=== PATIENT | female | born 2000 | race Hispanic/Latino ===

== ENCOUNTER 2023-01-01 04:50 | Emergency (ER) | payer OTHER, SELFPAY ==
[2023-01-01 04:54] VITALS: BP 133/54; PULSE 82; RESP 19; TEMP 36.2; O2SAT 100
--- NOTE | 2023-01-01 07:50 | ED.EYEPROB ---
HPI - Eye Problem General Chief complaint: Eye Problems Stated complaint: Right eye swelling Time Seen by Provider: 01/01/23 07:03 Source: patient and RN notes reviewed Mode of arrival: ambulatory Limitations: no limitations History of Present Illness HPI Narrative: This is a 22 year old female who presents for evaluation of right upper eyelid swelling. She noticed mild right upper eyelid swelling on sunday. She states she thought it was ingrown eyelash. She reports last night her upper eyelid seemed more swollen so she came to ER. She reports she has been here for a couple hours so her swelling has improved without treatment. She describes itching burning pain to eyelid. She denies light sensitivity, blurred vision, foreign body sensation to her eye. Related Data Allergies Allergy/AdvReac Type Severity Reaction Status Date / Time No Known Allergies Allergy Verified 01/01/23 06:11 Review of Systems Review of Systems: All systems reviewed & are unremarkable except as noted in HPI and below PMFSH Past Medical History Medical History (Updated 01/01/23 @ 08:00 by Venessa Horner MD) No significant medical problems Surgical History Surgical History (Updated 01/01/23 @ 08:00 by Venessa Horner MD) No pertinent past surgical history Social History Social History (Updated 01/01/23 @ 08:00 by Venessa Horner MD) Smoking status: Never smoker Exam Const: General: no acute distress and alert Nutritional Appearance: well nourished Orientation/consciousness: patient oriented x3 HENMT: Head: normal to inspection Mouth: Yes Normal oral and palatal mucosa present, Yes lip normal and Yes moist mucous membranes Eyes: Eyelids: eyelid abnormality right upper eyelid swelling, tenderness (mild tenderness) and other (right upper eyelid stye, no ); without erythema, no crusting or scaling of lid margins and with no ptosis Conjunctivae: conjunctivae normal Pupils: Equal, round and reactive pupils present EOM: EOMs intact bilaterally Direct Ophthalmoscopy: no photophobia Resp: Effort & Inspection: normal respiratory effort Skin: General skin exam: normal color Rashes: no rashes Wounds: no wounds Neuro: General: patient oriented x3, moves all extremities and CN's II-XI intact bilaterally Extrem: General: normal to inspection Psych: Mental Status: mental status grossly normal Affect: normal affect Attitude: cooperative Course Vital Signs Vital signs: Vital Signs Temperature 97.1 F L 01/01/23 04:54 Pulse Rate 82 01/01/23 04:54 Respiratory Rate 19 01/01/23 04:54 Blood Pressure 133/54 L 01/01/23 04:54 Pulse Oximetry 100 01/01/23 04:54 Oxygen Delivery Room Air 01/01/23 04:54 Temperature 97.1 F L 01/01/23 04:54 Pulse Rate 82 01/01/23 04:54 Respiratory Rate 19 01/01/23 04:54 Blood Pressure 133/54 L 01/01/23 04:54 Pulse Oximetry 100 01/01/23 04:54 Oxygen Delivery Room Air 01/01/23 04:54 Discharge Plan Discharge Clinical Impression: Hordeolum externum of right upper eyelid Patient Disposition: Home, Self-Care Condition: Stable Instructions: Antibiotic Form, Manolo (ED) Additional Instructions: Today you were found to have a stye. You will need to perform warm compresses with eyelid massage for 10-15 minutes intermittently through the day. Use antibiotic ointment as prescribed. Follow up with an eye doctor if it does not improve in 72 hours. Take medication such as ibuprofen or aleve for your pain. Prescriptions: New bacitracin-polymyxin B 500-10,000 unit/gram ointment 1 applic RIGHT EYE Q6H 10 Days Qty: 3.5 0RF Follow-up/Referrals: Alex Merrill MD [Physician] - PHYSICIAN,CYCLE REPAIRER [Primary Care Provider] - Stand Alone Forms: Work/School Release IP
== END 2023-01-01 08:00 | disposition home or self-care (01) ==
PROVIDERS: Emergency Provider General Practice
DX: H00.011 Hordeolum externum right upper eyelid (principal)
CPT/HCPCS: 99283

== ENCOUNTER 2023-10-12 23:33 | Emergency (ER) | payer SELFPAY ==
[2023-10-12 23:36] VITALS: BP 114/60; PULSE 78; RESP 20; TEMP 37.1; O2SAT 100
[2023-10-13 01:27] LABS: Basophils Absolute Auto 0.1 K/mm3 (0.0-0.1); Basophils Percent Auto 0.5 % (0.2-1.2); Eosinophils Absolute Auto 0.1 K/mm3 (0-0.3); Eosinophils Percent Auto 0.7 % (0-4.4); Hematocrit 45.2 % (37.0-47.0); Hemoglobin 14.8 g/dL (12.0-15.0); Immature Granulocyte Absolute 0.12 K/mm3 (0.00-0.031); Immature Granulocyte Percent A 0.7 % (0-0.5); Lymphocytes Absolute Auto 1.69 K/mm3 (0.9-3.2); Lymphocytes Percent Auto 9.2 % (18.3-44.2); Mean Corpuscular HGB Conc 32.7 g/dl (32-36); Mean Corpuscular Hemoglobin 27.3 pg (26-34); Mean Corpuscular Volume 83.2 fl (80-100); Mean Platelet Volume 10.5 fl (7.4-10.4); Monocytes Absolute Auto 0.9 K/mm3 (0.1-0.6); Monocytes Percent Auto 5.1 % (2.6-8.5); Neutrophils Absolute Auto 15.4 K/mm3 (1.3-6.7); Neutrophils Percent Auto 83.8 % (45.5-73.1); Platelet Count Result 343 k/mm3 (150-375); Red Blood Count 5.43 M/mm3 (4.2-5.4); Red Cell Distribution Width 12.4 % (11.5-14.5); White Blood Count 18.3 K/mm3 (4.5-10.0)
[2023-10-13 01:39] LABS: Alanine Aminotransferase 42 U/L (6-35); Albumin Level 5.4 g/dL (3.5-5.1); Alkaline Phosphatase 93 U/L (38-126); Anion Gap 15 mmol/L (4-12); Aspartate Amino Transferase 31 U/L (14-36); Bilirubin,Total 1.3 mg/dL (0.2-1.3); Blood Urea Nitrogen 10 mg/dL (7-17); Calcium 10.1 mg/dL (8.4-10.2); Carbon Dioxide 21 mmol/L (22-30); Chloride 103 mmol/L (98-107); Estimated CRCL calculation 116 ml/min; Estimated Glomerular Filt Rate > 60; Glucose 111 mg/dL (65-110); Lipase 47 U/L (23-300); Potassium 3.4 mmol/L (3.4-5.0); Sodium 139 mmol/L (137-145)
[2023-10-13 01:40] LABS: Appearance Urine Clear (Clear); Bilirubin Urine Negative (Negative); Blood Urine Negative (Negative); Color Urine Yellow (Yellow); Glucose Urine UA Negative (Negative); Ketones Urine Negative (Negative); Leukocyte Esterase Ur Negative LEU/UL (Negative); Nitrate Urine Negative (Negative); Protein Urine Negative (Negative); Specific Grav Ur 1.007 (1.001-1.035); pH Urine 7.5 (5.0-9.0)
[2023-10-13 01:49] LABS: Add Urine Microscopic? NO
--- NOTE | 2023-10-13 02:45 | ED.GENADULT ---
HPI - General Adult General Chief complaint: Nausea/Vomiting/Diarrhea Stated complaint: n/v/d Time Seen by Provider: 10/13/23 02:11 History of Present Illness HPI narrative: 23-year-old female presenting to the emergency department for evaluation persistent nausea vomiting epigastric burning since Sunday. Patient states on Sunday she felt like she ate some bad food that caused her to develop some food poisoning. Patient states since then she has had persistent nausea vomiting and has had epigastric and esophageal burning. Patient denies any significant past medical history. Related Data Allergies Allergy/AdvReac Type Severity Reaction Status Date / Time No Known Allergies Allergy Verified 01/01/23 06:11 Review of Systems Review of Systems: All systems reviewed & are unremarkable except as noted in HPI and below PMFSH Past Medical History Medical History (Updated 10/13/23 @ 04:03 by Grover Dailey MD) No significant medical problems Surgical History Surgical History (Updated 01/01/23 @ 08:00 by Venessa Horner MD) No pertinent past surgical history Social History Social History (Updated 01/01/23 @ 08:00 by Venessa Horner MD) Smoking status: Never smoker Exam Narrative: APPEARANCE: Well appearing, no pain, no distress, well-nourished. HEAD: normocephalic, atraumatic. EYES: PERRLA/EOMI, conjunctivae clear. NOSE: Normal no drainage EARS:TMS clear with good light reflex. THROAT: Pharynx clear, no exudate. NECK: Supple. No adenopathy, no masses. RESPIRATORY: Airway patent, respirations nonlabored. Clear to auscultation bilaterally, no rales, rhonchi, wheezing. CARDIOVASCULAR: Regular rate and rhythm without murmurs rubs or gallops. ABDOMINAL: Mild upper abdominal tenderness to palpation, no lower abdominal tenderness to palpation MUSCULOSKELETAL: Moves all extremities. Strength/ROM intact, No edema, No calf tenderness. NEURO: Alert. Cranial nerves II through XII intact. Grossly intact SKIN: Warm, dry. Normal Color Course Course Emergency Course: Patient felt improved with treatment and patient was discharged to Vital Signs Vital signs: Vital Signs Temperature 98.7 F 10/12/23 23:36 Pulse Rate 78 10/12/23 23:36 Respiratory Rate 20 10/12/23 23:36 Blood Pressure 114/60 10/12/23 23:36 Pulse Oximetry 100 07/12/24 23:36 Oxygen Delivery Room Air 10/12/23 23:36 Temperature 98.7 F 10/12/23 23:36 Pulse Rate 78 10/12/23 23:36 Respiratory Rate 20 10/12/23 23:36 Blood Pressure 114/60 10/12/23 23:36 Pulse Oximetry 100 10/12/23 23:36 Oxygen Delivery Room Air 10/12/23 23:36 Medical Decision Making [facility] Narrative Medical decision making narrative: 23-year-old female presented emergency department for evaluation for epigastric pain with associated nausea and vomiting. Patient did feel improved with treatment. Patient does have an elevated leukocytosis of 18.3 and stable hemoglobin. No significant abnormalities on the patient's CMP patient's lipase was not elevated. UA was negative for infection. Patient was treated with IV fluids, IV Protonix, GI cocktail IV Zofran and patient states she did feel significantly improved. Patient describes symptoms of worsening gastritis that may have and discharge nausea and vomiting. Patient was advised to follow clear liquid diet for the next few days Zofran as needed for nausea control and to start taking Prilosec for the next 14 days and have close follow-up with GI. Differential Diagnosis Differential Diagnosis: Appendicitis, colitis, diverticulitis, urinary tract infection, kidney stone, gastroenteritis, gastritis, esophagitis Vital Signs Vital Signs: Vital Signs Temperature 98.7 F 10/12/23 23:36 Pulse Rate 78 10/12/23 23:36 Respiratory Rate 20 10/12/23 23:36 Blood Pressure 114/60 10/12/23 23:36 Pulse Oximetry 100 10/12/23 23:36 Oxygen Delivery Room Air 10/12/23 23:36 Temperature
[2023-10-13] MEDS: BELLADONNA ALK/PHENOB ELIX 10 ML, MAG HYDROX/ALUMINUM HYD/SIMETH 30 ML, LIDOCAINE HCL 2... PO (03:03)
[2023-10-13] MEDS: PANTOPRAZOLE SODIUM IV 40 MG VIAL IV PUSH (03:04)
[2023-10-13] MEDS: ONDANSETRON INJ 4 MG/2 ML VIAL IV PUSH (03:04)
[2023-10-13] MEDS: SODIUM CHLORIDE 0.9% IV 1,000 ML 999 ML IV CONT (03:04)
--- NOTE | 2023-10-18 14:29 | PC.NURSE ---
LATE ENTRY This note is being entered to document information to the patient's record. The following information was omitted on [10/13/23], by [Hawa dodge RN]. NS stop time 0400
== END 2023-10-13 04:16 | disposition home or self-care (01) ==
PROVIDERS: Emergency Provider Emergency Medicine; PCP Emergency Medicine
DX: K20.90 Esophagitis, unspecified without bleeding (principal); K29.70 Gastritis, unspecified, without bleeding
CPT/HCPCS: 36415; 80053; 81003; 81025; 83690; 85025; 96361; 96374; 96375; 99284; A9270; J2405; J2470; J7030